=== PATIENT | male | born 1990 | race Caucasian/White ===

== ENCOUNTER 2018-07-25 17:58 | Emergency (ER) | payer OTHER ==
[2018-07-25] MEDS ORDERED: DEXAMETHASONE 10 MG/ML VIAL IVP ONE (19:00)
[2018-07-25] MEDS ORDERED: NS 1,000 ML IV ONE (19:00)
[2018-07-25] MEDS ORDERED: METOCLOPRAMIDE 10 MG/2 ML VIAL IVP ONE (19:00)
[2018-07-25] MEDS ORDERED: KETOROLAC 30 MG/1 ML SDV IVP ONE (19:00)
--- NOTE | 2018-07-25 19:04 | EDPHY ---
H & P Time Seen by Provider: 07/25/18 18:45 HPI/ROS: Chief complaint. Headache HPI. Patient is a 28-year-old male who has had intermittent headaches for the last 1-1/2 to 2 weeks. It [place] He had a gradual onset of his headache. At that time he had some upper respiratory symptoms but these have resolved. At that time he felt weak and feverish. However subsequently he has not been running a fever. Headaches awake and the patient at 9 it and are gone during the day or not bothering him much during the day. He was seen at urgent care and treated with steroids, muscle relaxer and Toradol. Symptoms do improve with Tylenol and ibuprofen but again recurred during the night. No cough or chest pain or shortness of breath or abdominal pain. No change in his vision. No focal weakness or paresthesias. No significant history of headaches. ROS 10 systems were reviewed and negative with the exception of the elements mentioned in the history of present illness Past Medical/Surgical History: Healthy Social History: Single, nonsmoker, no alcohol Smoking Status: Former smoker Physical Exam: General Appearance: Alert well-developed male mild distress vital signs are stable. Afebrile Eyes: Pupils equal and round no pallor or injection. ENT, tympanic membranes normal. Pharynx normal. Respiratory: There are no retractions, lungs are clear to auscultation. Cardiovascular: Regular rate and rhythm. Gastrointestinal: Abdomen is soft and nontender, no masses, bowel sounds normal. Neurological: Awake and alert, sensory and motor exams grossly normal. Skin: Warm and dry, no rashes. Musculoskeletal: Neck is supple nontender. Patient can look to the ceiling and also touch his chin to his chest. No evidence for meningismus Extremities symmetrical, full range of motion. Psychiatric: Patient is oriented X 3, there is no agitation. Constitutional: Initial Vital Signs Temperature (C) 36.8 C 07/25/18 18:06 Heart Rate 78 07/25/18 18:06 Respiratory Rate 18 07/25/18 18:06 Blood Pressure 149/94 H 07/25/18 18:06 O2 Sat (%) 97 07/25/18 18:06 O2 Delivery Mode Room Air Allergies/Adverse Reactions: No Known Allergies Allergy (Unverified 08/13/11 17:53) Home Medications: Medication Instructions Recorded Pharmacy Completed 08/13/11 08/13/11 Propecia 1mg 1 mg PO DAILY 08/13/11 Hydrocodone/APAP 5/325 [Zoar 1 each PO Q4-6PRN PRN #10 tab 07/25/18 5/325 (*)] Medical Decision Making - Diagnostics Imaging Results: Imaging Impressions Head CT 07/25/18 19:00 Impression: 1. No significant intracranial abnormality seen. If symptoms worsen, additional imaging may be necessary. Findings discussed with Lavelle Riggs M.D. at 19:25 hour, 07/25/2018. Noncontrast head CT is normal. Reviewed by me and discussed with Dr. Jamil Procedures: IV normal saline. Toradol, Decadron, Reglan, Benadryl IV ED Course/Re-evaluation: Re-evaluation at 7:45 p.m.. Patient is improved. Very small frontal residual headache. Otherwise neurologically intact. Patient and I discussed laboratory and imaging studies. We discussed lumbar puncture for possible meningitis. The patient and I discussed risks and benefits of lumbar puncture. After discussion he declines lumbar puncture. We discussed treatment plan including criteria for return and importance of follow- up and further evaluation. He expresses understanding and agreement Differential Diagnosis: Patient has had intermittent though persistent headache for 1 and half to 2 weeks. Possibly fever at the beginning but subsequently no fever. He has no meningeal signs right now. I do not think that this would represent bacterial meningitis but could have viral meningitis. This could be viral syndrome. - Data Points Laboratory Results: Laboratory Results 07/25/18 19:10 07/25/18 19:10 07/25/18 07/25/18 19:10 19:10 WBC 14.27 10^3/uL H 10^3/uL (3.80-9.50) RBC 5.63 10^6/uL 10^6/uL (4.40-6.38) Hgb 17.0 g/dL g/dL (13.7-17.5) Hct 48.4 % % (40.0-51.0) MCV 86.0 fL fL (81.5-99.8) MCH 30.2 pg pg (27.9-34.1) MCHC 35.1 g/dL g/dL (32.4-36.7) RDW 12.1 % % (11.5-15.2) Plt Count 266 10^3/uL 10^3/uL (150-400) MPV 9.0 fL fL (8.7-11.7) Neut % (Auto) 70.1 % % (39.3-74.2) Lymph % (Auto) 22.1 % % (15.0-45.0) [place] % (Auto) 6.4 % % (4.5-13.0) Eos % (Auto) 0.3 % L % (0.6-7.6) Baso % (Auto) 0.4 % % (0.3-1.7) Nucleat RBC Rel Count 0.0 % % (0.0-0.2) Absolute Neuts (auto) 10.02 10^3/uL H 10^3/uL (1.70-6.50) Absolute Lymphs (auto) 3.15 10^3/uL H 10^3/uL (1.00-3.00) Absolute Monos (auto) 0.91 10^3/uL H 10^3/uL (0.30-0.80) Absolute Eos (auto) 0.04 10^3/uL 10^3/uL (0.03-0.40) Absolute Basos (auto) 0.05 10^3/uL 10^3/uL (0.02-0.10) Absolute Nucleated RBC 0.00 10^3/uL 10^3/uL (0-0.01) Immature Gran % 0.7 % % (0.0-1.1) Immature Gran # 0.10 10^3/uL 10^3/uL (0.00-0.10) Sodium 136 mEq/L mEq/L (135-145) Potassium 4.1 mEq/L mEq/L (3.5-5.2) Chloride 103 mEq/L mEq/L (97-110) Carbon Dioxide 25 mEq/l mEq/l (22-31) Anion Gap 8 mEq/L mEq/L (6-14) BUN 15 mg/dL mg/dL (7-23) Creatinine 0.9 mg/dL mg/dL (0.7-1.3) Estimated GFR > 60 Glucose 93 mg/dL mg/dL (70-100) Calcium 9.2 mg/dL mg/dL (8.5-10.4) Medications Given: Discontinued Medications Dexamethasone (Decadron Injection) 10 mg IVP EDNOW ONE Stop: 07/25/18 19:01 Last Admin: 07/25/18 19:24 Dose: 10 mg Diphenhydramine HCl (Benadryl Injection) 12.5 mg IVP EDNOW ONE Stop: 07/25/18 19:01 Last Admin: 07/25/18 19:23 Dose: 12.5 mg Sodium Chloride (Ns) 1,000 mls @ 0 mls/hr IV ONCE ONE; Wide Open PRN Reason: Protocol Stop: 07/25/18 19:01 Last Admin: 07/25/18 19:23 Dose: 1,000 mls Ketorolac Tromethamine (Toradol) 30 mg IVP EDNOW ONE Stop: 07/25/18 19: Last Admin: 07/25/18 19:24 Dose: 30 mg Metoclopramide HCl (Reglan Injection) 10 mg IVP EDNOW ONE Stop: 07/25/18 19:01 Last Admin: 07/25/18 19:23 Dose: 10 mg Departure - Departure Disposition: Home, Routine, Self-Care Clinical Impression: Headache Qualifiers: Headache type: unspecified Headache chronicity pattern: episodic headache Intractability: not intractable Qualified Code(s): R51 - Headache Condition: Good Instructions: Acute Headache (ED) Additional Instructions: Drink plenty of fluids and stay hydrated Tylenol 1000 mg every 6 hr, ibuprofen 600 mg every 6 hr. May alternate these every 3 hr. Hydrocodone in addition for headache if necessary. Hydrocodone contains Tylenol so do not take extra Tylenol if taking the hydrocodone. May take hydrocodone and ibuprofen together Return for worsening headache, fever, stiff neck, rash. Re-evaluation by Infectious Disease in the next 2-3 days. Referrals: NONE *PRIMARY CARE P,. [Primary Care Provider] - As per Instructions Yazmin Nichole MD [Medical Doctor] - 2-3 days without fail Prescriptions: Hydrocodone/APAP 5/325 [Zoar 5/325 (*)] 1 each PO Q4-6PRN PRN #10 tab PRN Reason: Pain, Moderate
[2018-07-25 19:29] LABS: PLATELET COUNT 266 10^3/uL (150-400)
[2018-07-25 19:53] VITALS: BP 140/84
== END 2018-07-25 20:07 | disposition home or self-care (01) ==
DX: R51 Headache (principal); E86.9 Volume depletion, unspecified
CPT/HCPCS: 96374; J1100; J1200; J1885; J2765